=== PATIENT | female | born 1970 | race Caucasian/White ===

== ENCOUNTER 2023-04-11 23:57 | Emergency (ER) | payer MEDICAID, OTHER ==
[~2023-04-11] VITALS: Ht 157.5 cm; Wt 54.4 kg
[2023-04-12 00:05] VITALS: BP 139/77; PULSE 69; RESP 17; TEMP 97.6; O2SAT 99
[2023-04-12] MEDS ORDERED: SULFAMETH/TRIMETH DS 800/160MG 1 TAB PO ONE (01:25)
[2023-04-12] MEDS ORDERED: LIDOCAINE MPF 1% 10 MG/ML VIAL INJ ONE (01:25)
[2023-04-12] MEDS ORDERED: SULF-59 PO (02:35)
[2023-04-12 02:39] VITALS: PULSE 87; RESP 16; TEMP 97.9; O2SAT 99
[2023-04-12] MEDS ORDERED: IBUP-2218 PO (02:57)
== END 2023-04-12 02:41 | disposition home or self-care (01) ==
LOC: MED 23:57
DX: L03.012 Cellulitis of left finger (principal); Z79.899 Other long term (current) drug therapy
CPT/HCPCS: 10060; 99283; J2001

== ENCOUNTER 2023-12-10 14:40 | Emergency (ER) | payer OTHER ==
[~2023-12-10] VITALS: Ht 154.9 cm; Wt 63.5 kg
[~2023-12-10 14:40] MED LIST: IBUP-2218 PO; SULF-59 PO
[2023-12-10 14:59] VITALS: BP 131/76; PULSE 64; RESP 17; TEMP 98.1; O2SAT 100
[2023-12-10] MEDS ORDERED: NAPR-1704 PO (16:48)
[2023-12-10] MEDS: KETOROLAC 30 MG/ML VIAL IM ONE (17:06)
== END 2023-12-10 17:11 | disposition home or self-care (01) ==
LOC: MED 14:40
DX: M25.512 Pain in left shoulder (principal); E11.9 Type 2 diabetes mellitus without complications; Z79.899 Other long term (current) drug therapy
CPT/HCPCS: 73030; 96372; 99283; J1885